=== PATIENT | male | born 1995 | race Caucasian/White ===

== ENCOUNTER 2020-07-06 23:06 | Observation (INO) | payer OTHER ==
[~2020-07-06] VITALS: Ht 177.8 cm; Wt 104.3 kg
[2020-07-07 03:23] LABS: HEMOGLOBIN 16.6 gm/dl (14.0-17.5); RED BLOOD COUNT 5.46 M/UL (4.20-5.50)
[2020-07-07 03:47] LABS: BUN/CREATININE RATIO 12 (0-10)
[2020-07-08] MEDS ORDERED: COLACE100 MG PO (10:37)
[2020-07-08] MEDS ORDERED: HYDROCODON-ACE1 EAC4 PO (10:37)
[2020-07-08] MEDS ORDERED: IBUPROFEN600 MG PO (10:37)
== END 2020-07-08 11:50 | disposition home or self-care (01) ==
LOC: ER1 23:06 → CDU 07-07 05:34 → MED SURG 4 07-07 05:34
PROVIDERS: Family Medicine; ADMIT Surgery
PROC: 0DTJ4ZZ Resection of Appendix, Percutaneous Endoscopic Approach (ICD-10-PCS; principal; 2020-07-07 07:38)
DX: K35.30 Acute appendicitis with localized peritonitis, without perforation or gangrene (principal); Z20.822 Contact with and (suspected) exposure to COVID-19; Z79.2 Long term (current) use of antibiotics
CPT/HCPCS: 80053; 81001; 83690; 85025; 99285; G0378; J1100; J2001; J2250; J2405; J2543; J2704; J2710; J3010; J3480; J7120; Q9967; U0002